=== PATIENT | female | born 1985 | race Caucasian/White ===

== ENCOUNTER 2016-05-29 02:54 | Emergency (ER) | payer MEDICAID, OTHER ==
[~2016-05-29] VITALS: Ht 162.6 cm; Wt 102.1 kg
[2016-05-29 04:43] LABS: Basophils # (auto) 0 uL; Basophils % (auto) 0.4 % (0.0-2.0); DEFINITIVE VIEW TRANSMISSION; Eosinophils # (auto) 0.9 uL; Eosinophils % (auto) 9.9 % (0.0-7.0); Hemoglobin 12.8 g/dL (12.2-16.2); Lymphocytes # (auto) 3.9 uL; Mean Corpuscular Hemoglobin 31.6 pg (28.0-32.0); Mean Corpuscular Hgb Conc. 32.8 g/dL (32.0-36.0); Mean Corpuscular Volume 96.4 fL (80.0-100.0); Mean Platelet Volume 8.6 fL (7.4-10.4); Monocytes # (auto) 0.7 uL; Monocytes % (auto) 8.2 % (0.0-12.0); Neutrophils # (auto) 3.2 uL; Neutrophils % (auto) 36.5 % (37.0-80.0); Platelet Count (auto) 399 10^3/uL (140-450); Red Cell Distribution Width 12.3 % (11.6-16.0); White Blood Cell 8.7 10^3/uL (4.4-10.8)
[2016-05-29 04:57] LABS: Albumin 3.2 g/dL (3.4-5.0); Anion Gap 10 (5-15); BUN/Creatinine Ratio 14.9; Blood Urea Nitrogen 13 mg/dL (7-18); Calcium 8.4 mg/dL (8.5-10.1); Carbon Dioxide 27 mmol/L (21-32); Chloride 105 mmol/L (98-107); GFR African American 96 mL/min; GFR Non-African American 80 mL/min; Glucose 89 mg/dL (74-106); Potassium 3.2 mmol/L (3.5-5.1); Salicylate < 1.7 mg/dL (2.8-20.0); Sodium 142 mmol/L (136-145)
[2016-05-29 05:00] LABS: Acetaminophen < 2.0 ug/mL (10-30); Alkaline Phosphatase 67 U/L (45-117); Aspartate Aminotransferase 11 U/L (15-37); Bilirubin, Total < 0.1 mg/dL (0.2-1.0)
[2016-05-29 06:05] LABS: Urine Bilirubin Negative (Negative); Urine Blood Negative /uL (Negative); Urine Color Yellow (Yellow); Urine Glucose Normal (Normal); Urine Ketone Negative (Negative); Urine Mucus FEW (None Seen); Urine Nitrite Negative (Negative); Urine RBC 1 /hpf (0 - 4); Urine Squamous Epithelial Cell FEW /hpf (<5); Urine Urobilinogen Normal (Negative); Urine pH 6.5 (5.0-8.0)
[2016-05-29] MEDS ORDERED: amLODIPine BESYLATE 5 MG TAB PO SCH (19:00)
[2016-05-29] MEDS ORDERED: amLODIPine BESYLATE 5 MG TAB PO ONE (19:07)
[2016-05-30] MEDS: ALPRAZolam 0.25 MG TAB PO PRN ×2 (02:33→14:59)
[2016-05-30] MEDS: LOSARTAN POTASSIUM 50 MG TAB PO SCH (12:11)
[2016-05-30] MEDS: FLUoxetine HCL 20 MG CAP PO SCH (12:12)
[2016-05-30] MEDS ORDERED: ACETAMINOPHEN 325 MG TAB PO ONE (15:00)
[2016-05-31] MEDS: LOSARTAN POTASSIUM 50 MG TAB PO SCH (10:39)
[2016-05-31] MEDS: FLUoxetine HCL 20 MG CAP PO SCH (10:40)
[2016-05-31] MEDS ORDERED: ALPRAZolam 0.5 MG TAB PO ONE (10:45)
[2016-05-31] MEDS ORDERED: ALPRAZolam 0.5 MG TAB PO SCH (22:00)
[2016-05-31] MEDS ORDERED: ALPRAZolam 0.5 MG TAB ONE (22:51)
[2016-06-01 09:35] VITALS: BP 135/94
== END 2016-06-01 11:24 | disposition short-term general hospital (02) ==
LOC: EDBD 02:54 → ER 03:02
DX: F32.9 Major depressive disorder, single episode, unspecified (principal); F23 Brief psychotic disorder; R45.851 Suicidal ideations; F41.9 Anxiety disorder, unspecified; F17.210 Nicotine dependence, cigarettes, uncomplicated
CPT/HCPCS: 36415; 71010; 80053; 80320; 80329; 81001; 84702; 85025; 93005; 99285; G0434